=== PATIENT | male | born 1990 | race Caucasian/White ===

== ENCOUNTER → 2016-12-16 | Emergency (ER) | payer OTHER ==
[~2016-12-16] MED LIST: ACETAMINOPHEN 325 MG TABLET PO ONE; HYDROCODONE/ACETAMINOPHEN 5-325 MG 6 TAB/DSPK PO PRN; KETOROLAC TROMETHAMINE 60 MG/2 ML SDV IM ONE; LIDOCAINE 5% (700 MG) TRANSDERMAL ADH..PATCH TP ONE
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
[2016-12-17 03:54] VITALS: BP 134/87
== END | disposition home or self-care (01) ==
LOC: ER 22:27
DX: M54.5 Low back pain (principal); R51 Headache; M25.519 Pain in unspecified shoulder; V49.50XA Passenger injured in collision with unspecified motor vehicles in traffic accident, initial encounter
CPT/HCPCS: 72110; 96372; 99283; J1885

== ENCOUNTER 2019-04-03 10:52 | Emergency (ER) | payer SELFPAY ==
[2019-04-03] MEDS ORDERED: KETOROLAC TROMETHAMINE 60 MG/2 ML SDV IM ONE (11:39)
[2019-04-03] MEDS ORDERED: LIDOCAINE 5% (700 MG) TRANSDERMAL ADH..PATCH TP ONE (11:39)
[2019-04-03] MEDS ORDERED: DEXAMETHASONE SOD PHOS INJ 10 MG/1 ML VIAL IM ONE (11:39)
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
--- NOTE | 2019-04-03 12:36 | RADIOLOGY REPORT (SQ) ---
EXAM DESCRIPTION: L SPINE WHOLE COMPLETED DATE/TIME: 04/03/2019 12:09 pm REASON FOR STUDY: mid low back pain COMPARISON: 12/17/2016 NUMBER OF VIEWS: Five views including obliques. TECHNIQUE: AP, lateral, oblique, and sacral radiographic images acquired of the lumbar spine. LIMITATIONS: None. FINDINGS: MINERALIZATION: Normal. SEGMENTATION: Normal. No transitional anatomy. ALIGNMENT: Normal. VERTEBRAE: Maintained height. No fracture or worrisome bone lesion. DISCS: Preserved height. No significant osteophytes or end plate irregularity. POSTERIOR ELEMENTS: Pedicles and facets are intact. No pars defect or posterior arch defects. HARDWARE: None in the spine. PARASPINAL SOFT TISSUES: Normal. PELVIS: Intact as visualized. No fractures or worrisome bone lesions. SI joints intact. OTHER: No other significant finding. IMPRESSION: NORMAL 5 VIEW LUMBAR SPINE. TECHNICAL DOCUMENTATION: JOB ID: [id number] [employer]- All Rights Reserved Reading location - IP/workstation name: [email or web address]
[2019-04-03 12:41] VITALS: BP 131/92
== END 2019-04-03 12:42 | disposition home or self-care (01) ==
LOC: ER 10:52
DX: M54.5 Low back pain (principal); G89.29 Other chronic pain; V49.9XXS Car occupant (driver) (passenger) injured in unspecified traffic accident, sequela; I10 Essential (primary) hypertension; F17.200 Nicotine dependence, unspecified, uncomplicated; R25.2 Cramp and spasm
CPT/HCPCS: 99283; 96372; 72110; J1885; J1100

== ENCOUNTER 2019-10-08 11:37 | Emergency (ER) | payer SELFPAY ==
[2019-10-08 12:14] VITALS: BP 130/83
[2019-10-08] MEDS ORDERED: CEPHALEXIN 500 MG CAPSULE PO ONE (12:42)
[2019-10-08] MEDS ORDERED: SULFAMETHOXAZOLE/TRIMETHOPRIM 800-160 MG TABLET PO ONE (12:42)
--- NOTE | 2019-10-08 12:44 | ER Document Report ---
HPI - HPI Patient complains to provider of: Skin rash Time Seen by Provider: 10/08/19 12:35 Onset: Other - 5 days Onset/Duration: Persistent Pain Level: 1 Context: Patient states that he developed a rash 5 days ago to the backs of the hands face and scalp area. Patient states that he has been recently staying with a friend as well as eating new foods. Patient denies any new medications. P atient states that rash is pruritic. Patient has been treating with topical triamcinolone and states that this seems to be helping the rash although the rash to the scalp has worsened. Patient denies any fever or history of IV drug use. Associated Symptoms: denies: Fever, Headache, Nausea, Vomiting Exacerbated by: Denies Relieved by: Denies Similar symptoms previously: No Recently seen / treated by doctor: No - ROS ROS below otherwise negative: Yes Systems Reviewed and Negative: Yes All other systems reviewed and negative - CONSTITUTIONAL Constitutional: DENIES: Fever, Chills - NEURO Neurology: DENIES: Headache, Weakness - CARDIOVASCULAR Cardiovascular: DENIES: Chest pain - RESPIRATORY Respiratory: DENIES: Trouble Breathing, Coughing - GASTROINTESTINAL Gastrointestinal: DENIES: Nausea, Patient vomiting - MUSCULOSKELETAL Musculoskeletal: DENIES: Extremity pain - DERM Skin Color: Erythema Skin Problems: Rash Past Medical History - General Information source: Patient - Social History Smoking Status: Current Every Day Smoker Chew tobacco use (# tins/day): No Frequency of alcohol use: Occasional Drug Abuse: None Occupation: 3d artist Family History: Reviewed & Not Pertinent Patient has suicidal ideation: No Patient has homicidal ideation: No - Past Medical History Cardiac Medical History: Reports: Hx Hypertension Renal/ Medical History: Denies: Hx Peritoneal Dialysis Past Surgical History: Reports: Hx Bowel Surgery - Immunizations Hx Diphtheria, Pertussis, Tetanus Vaccination: Yes Vertical Provider Document - CONSTITUTIONAL Agree With Documented VS: Yes Exam Limitations: No Limitations General Appearance: WD/WN, No Apparent Distress - INFECTION CONTROL TRAVEL OUTSIDE OF THE [place] IN LAST 30 DAYS: No - HEENT HEENT: Atraumatic, Normocephalic - NECK Neck: Normal Inspection, Supple. negative: Lymphadenopathy-Left, Lymphadenopathy-Right - RESPIRATORY Respiratory: Breath Sounds Normal, No Respiratory Distress - CARDIOVASCULAR Cardiovascular: Regular Rate, Regular Rhythm - MUSCULOSKELETAL/EXTREMETIES Musculoskeletal/Extremeties: MAEW - NEURO Level of Consciousness: Awake, Alert, Appropriate Motor/Sensory: No Motor Deficit - DERM Integumentary: Warm, Dry, Rash - Patient with excoriated erythematous papular rash to face and dorsal aspect of hands. Patient also with scattered lesions to scalp. Patient with 2 areas of crusting with surrounding erythema to scalp. No fluctuance, no drainable abscess. Course - Re-evaluation Re-evalutation: 10/08/19 12:50 Patient with skin rash that appears to be secondarily infected. Patient encouraged not to scratch or pick at skin lesions. Patient states that he has been using different detergents as he has been staying at multiple friends houses due to change in living situation. Patient nontoxic in appearance. Patient encouraged to return immediately for any worsening of symptoms. Patient states he had been using triamcinolone cream that appeared to be helping the skin lesions. Will place patient on steroids as well as covering for secondary infection at this time. - Vital Signs Vital signs: Temp Pulse Resp BP Pulse Ox 98.4 F 88 16 130/83 H 100 10/08/19 12:13 10/08/19 12:13 10/08/19 12:13 10/08/19 12:13 10/08/19 12:13 Discharge - Discharge Clinical Impression: Skin rash, Impetigo Condition: Stable Disposition: HOME, SELF-CARE Instructions: Impetigo ([facility]), Bactroban Ointment ([facility]), Cephalexin ([facility]), Trimethoprim-Sulfa ([facility]), Steroid Medication Additional Instructions: Return immediately for any new or worsening symptoms: Spreading of rash, fever, new or worsening symptoms Followup with your primary care provider, call tomorrow to make a followup appointment Avoid scratching or picking at skin Prescriptions: Sulfamethoxazole/Trimethoprim [Bactrim Ds Tablet] 1 each PO BID #20 tablet Mupirocin [Bactroban 2% Ointment 22 gm] 1 applic TP TID #22 gm Prednisone [Deltasone 10 mg Tablet] 10 mg PO ASDIR PRN #21 tablet PRN Reason: Cephalexin Monohydrate [Keflex 500 mg Capsule] 500 mg PO Q6H 7 Days #28 capsule Referrals: [facility] [Provider Group] - Follow up as needed [facility] [Provider Group] - Follow up as needed
== END 2019-10-08 12:56 | disposition home or self-care (01) ==
LOC: ER 11:37
DX: L01.00 Impetigo, unspecified (principal); I10 Essential (primary) hypertension; F17.200 Nicotine dependence, unspecified, uncomplicated